=== PATIENT | male | born 1960 | race Hispanic/Latino ===

== ENCOUNTER 2019-04-29 23:00 | Emergency (ER) | payer SELFPAY ==
[~2019-04-29] VITALS: Ht 172.7 cm; Wt 82.4 kg
[2019-04-30] MEDS ORDERED: IBUPROFEN600 MG PO (00:19)
[2019-04-30 00:25] VITALS: BP 145/83
== END 2019-04-30 00:25 | disposition home or self-care (01) | DRG 558 ==
LOC: ED 23:00
DX: M77.9 Enthesopathy, unspecified (principal); I10 Essential (primary) hypertension